=== PATIENT | female | born 2000 | race Caucasian/White ===

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

== ENCOUNTER 2019-04-10 11:18 | Emergency (ER) | payer OTHER ==
--- NOTE | 2019-04-10 11:56 | XRAY Report ---
Reason: cough x 9 days Procedure Date: 04/10/2019 Accession Number: [id number] / [id number] Procedure: XR - Chest 2 View X-Ray CPT Code: 74331 Final Report FULL RESULT: EXAM: CHEST RADIOGRAPHY EXAM DATE: 04/10/2019 11:51 AM. CLINICAL HISTORY: Cough x 9 days. COMPARISON: None. TECHNIQUE: 2 views. FINDINGS: Lungs/Pleura: No focal opacities evident. No pleural effusion. No pneumothorax. Normal volumes. Mediastinum: Heart and mediastinal contours are unremarkable. Other: None. IMPRESSION: Normal 2-view chest radiography. RADIA
[2019-04-10] MEDS ORDERED: IPRATROPIUM/ALBUTEROL 3 ML NEB INH STA (12:33)
[2019-04-10] MEDS ORDERED: predniSONE 20 MG TABLET PO STA (12:33)
--- NOTE | 2019-04-10 12:34 | ED Physician Documentation ---
History of Present Illness - Stated complaint Stated Complaint: SOA,FEVER,COUGH - Chief complaint Chief Complaint: General - History obtained from History obtained from: Patient - History of Present Illness Timing: How many days ago (9) Pain level max: 0 Pain level now: 0 - Additonal information Additional information: 19-year-old female presents to the emergency department with a cough and congestion for the last 9 days. She used to use inhalers as a child. Is currently not using them. She developed a fever last night, 101. The cough is mostly dry. No vomiting. Denies any possibility of . She is not breast-feeding. She feels like her breathing is tight. Nothing makes this better or worse. Review of Systems Constitutional: reports: Fever. denies: Chills Nose: reports: Rhinorrhea / runny nose, Congestion Throat: denies: Sore throat Respiratory: reports: Dyspnea, Cough, Wheezing GI: denies: Abdominal Pain, Nausea, Vomiting, Diarrhea : denies: Dysuria, Frequency, Hesitancy, Now EGA Skin: denies: Rash Musculoskeletal: denies: Neck pain, Back pain Neurologic: denies: Headache PD PAST MEDICAL HISTORY - Past Medical History Past Medical History: Yes Cardiovascular: None Respiratory: Asthma Neuro: Migraines Endocrine/Autoimmune: None GI: None : None HEENT: None Psych: Depression, Anxiety, Other Musculoskeletal: None Derm: Eczema Other Past Medical History: Panic attacks - Past Surgical History Past Surgical History: Yes Ortho: Other HEENT: Other - Present Medications Home Medications: Ambulatory Orders Medication Instructions Recorded Confirmed Cyclobenzaprine [Flexeril] 10 mg PO TID PRN #20 tablet 10/31/18 Hydrocodone/Acetaminophen 1 - 2 each PO Q6H PRN #14 tablet 10/31/18 [Hydrocodon-Acetaminophen 5-325] Albuterol 2.5 mg INH Q4H PRN #30 neb 04/10/19 Albuterol Sulf [Ventolin Hfa 1 - 2 puffs INH Q4HR PRN #1 inhaler 04/10/19 Inhaler] Benzonatate [Tessalon Perle] 100 - 200 mg PO TID PRN #30 capsule 04/10/19 predniSONE [Prednisone] 40 mg PO DAILY #10 tablet 04/10/19 - Allergies Allergies/Adverse Reactions: Allergies Allergy/AdvReac Type Severity Reaction Status Date / Time venom-wasp [wasp venom] AdvReac Severe Hives Verified 04/10/19 11:30 - Social History Does the pt smoke?: No Smoking Status: Never smoker Does the pt drink ETOH?: No Does the pt have substance abuse?: No - Immunizations Immunizations are current?: No Immunizations: No immun - POLST Patient has POLST: No PD ED PE NORMAL - Vitals Vital signs reviewed: Yes - General General: Alert and oriented X 3, No acute distress - HEENT HEENT: Ears normal, Moist mucous membranes, Pharynx benign - Neck Neck: Supple, no meningeal sign, No adenopathy - Cardiac Cardiac: RRR - Respiratory Respiratory: No respiratory distress, Other (Diminished breath sounds bilaterally) - Abdomen Abdomen: Soft, Non tender, Non distended - Derm Derm: Warm and dry, No rash - Extremities Extremities: No edema - Neuro Neuro: Alert and oriented X 3 - Psych Psych: Normal mood, Normal affect Results - Vitals Vitals: Vital Signs - 24 hr 04/10/19 04/10/19 04/10/19 11:27 12:38 13:03 Temperature 37.5 C 37.1 C Heart Rate 102 H 103 H 110 H Respiratory 17 18 22 Rate Blood Pressure 130/97 H 104/70 O2 Saturation 97 97 Oxygen O2 Source Room air - Rads (name of study) Chest x-ray Radiology: Prelim report reviewed, EMP read contemporaneously, See rad report (Normal) PD MEDICAL DECISION MAKING - ED course Complexity details: reviewed results, re-evaluated patient, considered differential, d/w patient, d/w family ED course: Patient feels better after nebulizer treatment. She does have a nebulizer machine at home. Will prescribe an inhaler, nebulizer solution and cough medication. Will continue supportive care. Patient is well-appearing, nontoxic. Afebrile. No hypoxia. No respiratory distress. Patient and family counseled regarding signs and symptoms for which I believe and urgent re-evaluation would be necessary. Patient with good understanding of and agreement to plan and is comfortable going home at this time This document was made in part using voice recognition software. While efforts are made to proofread this document, sound alike and grammatical errors may occur. Departure - Departure Disposition: 01 Home, Self Care Clinical Impression: Viral URI Condition: Good Instructions: ED URI Viral W Wheezing Follow-Up: your,doctor in 1 week [Other] - Within 1 week Prescriptions: Albuterol Sulf [Ventolin Hfa Inhaler] 1 - 2 puffs INH Q4HR PRN #1 inhaler PRN Reason: Shortness Of Air/Wheezing Albuterol 2.5 mg INH Q4H PRN #30 neb PRN Reason: Wheezing Benzonatate [Tessalon Perle] 100 - 200 mg PO TID PRN #30 capsule PRN Reason: Cough predniSONE [Prednisone] 40 mg PO DAILY #10 tablet Comments: Use the medications as prescribed. Return if you worsen. This should improve over the next few days.
[2019-04-10 12:42] VITALS: BP 104/70
== END 2019-04-10 13:45 | disposition home or self-care (01) ==
LOC: ED 11:18
DX: J06.9 Acute upper respiratory infection, unspecified (principal)
CPT/HCPCS: 71046; 94640; 94664; 99283; 99284; J7512

== ENCOUNTER 2020-05-01 20:51 | Emergency (ER) | payer OTHER ==
[2020-05-01 20:56] VITALS: BP 160/90
[2020-05-01] MEDS ORDERED: IBUPROFEN 600 MG TABLET PO STA (21:32)
--- NOTE | 2020-05-01 21:34 | ED Physician Documentation ---
History of Present Illness - Stated complaint Stated Complaint: RT EAR PX - Chief complaint Chief Complaint: Heent - Additonal information Additional information: 20-year-old woman, previously healthy presents with right ear pain over the past couple days, progressively worsening, worse with pulling on the ear, moderate severity, localized to the area and nonradiating, without associated factors. Denies fevers, discharge, pain to the skull. Denies prior issues with the ear. Review of Systems Ears: reports: Ear pain. denies: Drainage/discharge PD PAST MEDICAL HISTORY - Past Medical History Cardiovascular: None Respiratory: Asthma Neuro: Migraines Endocrine/Autoimmune: None GI: None : None HEENT: None Psych: Depression, Anxiety, Other Musculoskeletal: None Derm: Eczema - Past Surgical History Past Surgical History: Yes Ortho: Other HEENT: Other - Present Medications Home Medications: Ambulatory Orders Medication Instructions Recorded Confirmed Cyclobenzaprine [Flexeril] 10 mg PO TID PRN #20 tablet 10/31/18 Hydrocodone/Acetaminophen 1 - 2 each PO Q6H PRN #14 tablet 10/31/18 [Hydrocodon-Acetaminophen 5-325] Albuterol 2.5 mg INH Q4H PRN #30 neb 04/10/19 Albuterol Sulf [Ventolin Hfa 1 - 2 puffs INH Q4HR PRN #1 inhaler 04/10/19 Inhaler] Benzonatate [Tessalon Perle] 100 - 200 mg PO TID PRN #30 capsule 04/10/19 predniSONE [Prednisone] 40 mg PO DAILY #10 tablet 04/10/19 Ciprofloxacin/Hydrocortisone 10 ml OT TID 10 Days #1 bottle 05/01/20 [Cipro Hc Otic Suspension] - Allergies Allergies/Adverse Reactions: Allergies Allergy/AdvReac Type Severity Reaction Status Date / Time venom-wasp [wasp venom] AdvReac Severe Hives Verified 05/01/20 20:53 - Social History Does the pt smoke?: No Smoking Status: Never smoker Does the pt drink ETOH?: No Does the pt have substance abuse?: No - Immunizations Immunizations are current?: No Immunizations: No immun - POLST Patient has POLST: No PD ED PE NORMAL - Vitals Vital signs reviewed: Yes - General General: Alert and oriented X 3, No acute distress, Well developed/nourished - HEENT HEENT: Atraumatic, PERRL, EOMI, Other (R TM clear. R ext aud canal with moderate swelling and granulation tissue, mild purulence) Results - Vitals Vitals: Vital Signs - 24 hr 05/01/20 05/01/20 20:53 21:38 Temperature 36.8 C Heart Rate 110 H Respiratory 18 16 Rate Blood Pressure 160/90 H O2 Saturation 98 Oxygen O2 Source Room air PD MEDICAL DECISION MAKING - ED course ED course: 20-year-old woman presents with uncomplicated otitis externa. Antibiotic eardrops prescribed. Return precautions given. She will follow up with her primary doctor. Departure - Departure Disposition: Home, Self Care Clinical Impression: External otitis of right ear Condition: Good Instructions: ED Otitis Externa Prescriptions: Ciprofloxacin/Hydrocortisone [Cipro Hc Otic Suspension] 10 ml OT TID 10 Days #1 bottle Comments: You were seen in the emergency department for an external ear infection. Please take your eardrops as prescribed and return to the emergency department for any new or worsening symptoms or other concerns. Follow-up with your primary doctor Discharge Date/Time: 05/01/20 21:39
== END 2020-05-01 21:39 | disposition home or self-care (01) ==
LOC: ED 20:51
DX: H60.91 Unspecified otitis externa, right ear (principal)
CPT/HCPCS: 99282; 99283; A9270

== ENCOUNTER 2022-12-30 15:46 | Outpatient (CLI) | payer OTHER ==
--- NOTE | 2022-12-30 16:34 | XRAY Report ---
PROCEDURE: Cervical Spine 2 View INDICATIONS: CERVICALGIA TECHNIQUE: 3 view(s) of the cervical spine were acquired. COMPARISON: None. FINDINGS: Bones: No fractures or dislocations to the C7 level. Straightening and mild reversal of normal cervi salbador lordosis which may be positional. There are no significant degenerative changes. The lateral mass es of C1 appear intact on the odontoid view. No suspicious bony lesions. Soft tissues: No prevertebral soft tissue swelling. IMPRESSION: No significant degenerative changes. Straightening and mild reversal of normal cervical lordosis which may be positional. Reviewed by: Serg Sosa MD on 12/30/2022 4:33 PM PST Approved by: Serg Sosa MD on 12/30/2022 4:33 PM PST Station ID: [id number]
== END 2022-12-30 15:47 | disposition home or self-care (01) ==
LOC: DI 15:46
PROVIDERS: ATTEND Nurse Practitioner Family
DX: M54.2 Cervicalgia (principal)

== ENCOUNTER 2023-09-04 08:00 | Outpatient (CLI) | payer OTHER | END 2023-09-04 23:59 | disposition home or self-care (01) | LOC: LAB.S 08:00 | PROVIDERS: ATTEND Physician Assistant Medical | DX: J02.9 Acute pharyngitis, unspecified (principal) | CPT/HCPCS: 87070 ==